=== PATIENT | male | born 2005 | race Two or more races ===

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

== ENCOUNTER 2023-02-21 05:51 | Emergency (ER) | payer BC ==
[2023-02-21] MEDS ORDERED: Ondansetron 4 MG/2 ML SDV IVPUSH ONE (05:52)
[2023-02-21] MEDS ORDERED: Morphine 4 MG/ML Syringe IVPUSH ONE (05:52)
[2023-02-21] MEDS ORDERED: Sodium Chloride 0.9% 1,000 ML IV ONE (05:55)
[2023-02-21] MEDS ORDERED: Nicotine 21 MG/24 Hr Patch TRDERM ONE (05:56)
[2023-02-21 06:37] LABS: BASOPHILS ABSOLUTE AUTO 0.04 K/uL (0.00-0.30); BASOPHILS PERCENT AUTO 0.4 % (0.0-1.0); EOSINOPHILS ABSOLUTE AUTO 0.06 K/uL (0.00-0.70); EOSINOPHILS PERCENT AUTO 0.6 % (0.0-5.0); HEMATOCRIT 41.6 % (42.0-52.0); HEMOGLOBIN 14.4 g/dL (14.0-18.0); IMMATURE GRAN ABSOLUTE AUTO 0.05 K/uL (0.00-0.05); IMMATURE GRAN PERCENT AUTO 0.5 % (0.0-0.4); LYMPHOCYTES ABSOLUTE AUTO 1.82 K/uL (2.00-8.80); LYMPHOCYTES PERCENT AUTO 17.3 % (50.0-65.0); MEAN CORPUSCULAR HEMOGLOBIN 31.9 pg (28.0-32.0); MEAN CORPUSCULAR HGB CONC 34.6 g/dL (32.0-36.0); MEAN PLATELET VOLUME 8.9 fL (9.4-12.4); MONOCYTES ABSOLUTE AUTO 0.37 K/uL (0.10-1.40); MONOCYTES PERCENT AUTO 3.5 % (2.0-10.0); NEUTROPHILS ABSOLUTE AUTO 8.18 K/uL (1.50-8.50); NEUTROPHILS PERCENT AUTO 77.7 % (35.0-45.0); PLATELET COUNT,PLT 213 K/uL (150-400); RED BLOOD CELL COUNT 4.52 M/uL (4.52-5.90); WHITE BLOOD CELL COUNT,WBC 10.52 K/uL (4.5-13.5)
[2023-02-21 07:03] LABS: A/G RATIO 1.1 (0.9-1.6); ALBUMIN 3.5 g/dL (3.4-5.0); BILIRUBIN TOTAL 0.3 mg/dL (0.2-1.0); CALCIUM 7.9 mg/dL (8.5-10.1); CARBON DIOXIDE,CO2 24.9 mmol/L (21.0-32.0); CREATININE 0.7 mg/dL (0.8-1.3); EST CRCL DRUG DOSING (CG) 175.26 mL/min; POTASSIUM,K 3.8 mmol/L (3.5-5.1); PROTEIN TOTAL,TP 6.7 g/dL (6.4-8.2)
[2023-02-21] MEDS ORDERED: Iopamidol 755 MG/ML 500 ML Multipack Bottle IVPUSH ONE (07:14)
== END 2023-02-21 09:23 | disposition home or self-care (01) ==
LOC: MW.ED 05:51
DX: S43.121A Dislocation of right acromioclavicular joint, 100%-200% displacement, initial encounter (principal); W19.XXXA Unspecified fall, initial encounter
CPT/HCPCS: 36415; 70450; 71260; 72125; 72128; 72131; 73030; 74177; 80053; 80307; 85025; 96361; 96374; 96375; 99285; A9270; J2270; J2405; J7030; Q9967